=== PATIENT | male | born 1995 | race Caucasian/White ===

== ENCOUNTER 2017-09-07 18:37 | Emergency (ER) | payer MEDICAID ==
[~2017-09-07] VITALS: Ht 177.8 cm; Wt 91.6 kg
[2017-09-07 18:40] VITALS: BP 149/94
[2017-09-07] MEDS ORDERED: NEOMYCIN/POLYMYXIN/BACITRACIN 0.9 GM/1 PKT TP ONE (21:10)
[2017-09-07] MEDS ORDERED: LIDOCAINE 1% 500 MG/50 ML VIAL INJ ONE (21:10)
[2017-09-07] MEDS ORDERED: LIDOCAINE 2% 1000 MG/50 ML VIAL INJ ONE ×2 (21:45→23:00)
[2017-09-07 23:16] VITALS: BP 135/86
== END 2017-09-07 23:16 | disposition home or self-care (01) ==
LOC: MED 18:37
DX: S61.002A Unspecified open wound of left thumb without damage to nail, initial encounter (principal); W45.8XXA Other foreign body or object entering through skin, initial encounter; Y93.89 Activity, other specified; Y92.89 Other specified places as the place of occurrence of the external cause; Y99.8 Other external cause status
CPT/HCPCS: 12001; 90471; 90715; 99283; J2001